=== PATIENT | female | born 1930 | race Hispanic/Latino ===

== ENCOUNTER 2017-04-26 16:29 | Observation (INO) | payer MEDICARE, BC ==
[2017-04-26] MEDS ORDERED: Sodium Chloride 0.9% 1,000 ML IV STA (16:47)
--- NOTE | 2017-04-26 17:03 | ED PDOC ---
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 Patient stated that the pain came suddenly while she was with her grandchildren. She describes the pain as sharp, rates the pain a 10/10 and states it radiates posteriorly and laterally. She does complain of associated urinary frequency that began last night. She denies any fevers, chills, abdominal pain, nausea, vomiting, hematuria, dysuria , or incontinence. ROS POSITIVES: CVA tenderness, increased urinary frequency NEGATIVES: fevers, chills, chest pain, sob, headache, abdominal tenderness, suprapubic tenderness, hematuria, dysuria, or incontinence. Past medical history: hypertension, hyperlipidemia, Hashimotos Thyroditis Past Surgical history: Polyp removal Allergies: NKDA Social History: 1/2 PPD for about 40 years. Quit 28 years ago. Family History: kidney stones in multiple family members Meds: Reviewed 04/26/17 18:10 04/26/17 20:06 (Lea Garvey) Past Medical History - Provider Review Nursing Documentation Reviewed: Yes - Infectious Disease Hx of Infectious Diseases: None - Reproductive Menopause: Yes - Cardiac Hx Hypertension: Yes - Endocrine/Metabolic Other/Comment: thyroiditis - Psychiatric Hx Substance Use: No - Anesthesia Hx Anesthesia: No Hx Anesthesia Reactions: No Hx Malignant Hyperthermia: No <Lea Garvey - Last Filed: 04/26/17 22:31> Family/Social History - Physician Review Nursing Documentation Reviewed: Yes Family/Social History: Other (Kidney Stones) Smoking Status: Never Smoked Hx Alcohol Use: Yes Frequency of alcohol use: Socially Hx Substance Use: No <Lea Garvey - Last Filed: 04/26/17 22:31> Allergies/Home Meds <Lea Garvey - Last Filed: 04/26/17 22:31> <RichardAmos - Last Filed: 04/28/17 11:36> Allergies/Adverse Reactions: Allergies No Known Allergies Allergy (Verified 04/26/17 16:39) Home Medications: Home Meds Medication Instructions Recorded Confirmed No Known Home Med 04/26/17 04/26/17 Review of Systems - Physician Review All systems were reviewed & negative as marked: Yes (As per HPI) - Review of Systems Respiratory: Normal. absent: SOB Cardiovascular: Normal. absent: Chest Pain <Lea Garvey - Last Filed: 04/26/17 22:31> Physical Exam Vital Signs Reviewed: Yes Temperature: Afebrile Blood Pressure: Normal Pulse: Regular Respiratory Rate: Normal Appearance: Positive for: Uncomfortable Pain Distress: Severe Mental Status: Positive for: Alert and Oriented X 3 - Systems Exam Head: Present: Atraumatic, Normocephalic Extroacular Muscles: Present: EOMI Conjunctiva: Present: Normal Mouth: Present: Moist Mucous Membranes Pharnyx: Present: Normal Nose (External): Present: Atraumatic Respiratory/Chest: Present: Clear to Auscultation. No: Wheezes, Rales, Rhonchi Cardiovascular: Present: Regular Rate and Rhythm, Normal S1, S2. No: Murmurs Abdomen: Present: Normal Bowel Sounds. No: Tenderness, Distention, Peritoneal Signs, Rebound, Guarding, McBurney's Point Tender, Rovsing's Sign Present, Mass/ Organomegaly Back: Present: CVA Tenderness (Left Sided) Upper Extremity: Present: Normal Inspection Lower Extremity: Present: Normal Inspection Neurological: Present: GCS=15, Speech Normal Psychiatric: Present: Alert, Oriented x 3 <Lea Garvey - Last Filed: 04/26/17 22:31> Vital Signs Temp Pulse Resp BP Pulse Ox 04/26/17 22:33 98.3 F 87 16 109/63 96 04/26/17 20:10 82 16 147/86 97 04/26/17 17:48 73 20 137/86 100 04/26/17 16:31 99.1 F 80 20 121/80 98 Medical Decision Making Reassessment Condition: Improving,but remains with symptoms - Lab Interpretations I have reviewed the lab results: Yes - RAD Interpretation Toe Pounder: Radiologist - EKG Interpretation Interpreted by ED Physician: Yes <Lea Garvey - Last Filed: 04/26/17 22:31> <Cam Ramosbrittany - Last Filed: 04/28/17 11:36> ED Course and Treatment: 87 year old female with Past medical history of hypertension, hyperlipidemia, and Hashimotos Thyroditis presents with Left sided CVA tenderness. --CBC/CMP --PT/PTT --Urinalysis/UC --1L NS fluid bolus --Toradol 15 --Morphine 2 --Flomax 0.4mg --CT Abd/Pelvis w/o contrast. --Reassess and Disposition Reassessment --CBC: Unremarkable --CMP: Unremarkable --Urinalysis: Unremarkable --Patient's pain has improved --CT Abd/Pelvis impression read by Dr. Evelin Foster: -Punctate nonobstructing bilateral renal calculi. -2.4 cm probable left ovarian cyst. -Diverticulosis without CT evidence of acute diverticulitis. --Chest X-ray: Ordered --EKG: Ordered --Reassess and Disposition Reassessment II --Chest X-ray: No Active Pulmonary Disease Process --EKG: NSR with no ST/T wave changes. --Pt is still having intermittent bouts of Pain --Morphine 4 Ordered Reassessment III --pain slightly improved with Morphine 4 --TV US for evaluation of ovarian cyst --CT Abd/Pelvis w/ PO and IV contrast for reevaluation. --Admit to Observation. 04/26/17 20:09 04/26/17 22:31 (Lea Garvey) Patient Seen With Resident: In agreement with resident note. Patient was seen and evaluated with resident, came up with plan and treatment together. An 87 year old female with left sided back pain. Additional HPI as noted by resident. On physical exam, patient has left sided CVA tenderness. Ordered CT abd/pelvis, labs and Urinalysis. Will give patient Flomax, IV fluids, Toradol, Morphine. 04/26/17 22:38 Emigdio Marie was called to place t findings in the clinical context, and addendum was appreciated as 1 mm uvj stone could be causing relaxing /relapsing course of abdominal pain. Nonetheless the patient will be rescanned with po and iv contrast to rule out any occult diverticulitis, or retroperitoneal vascular emergencies that could have been missed noncontrast ct scan . nsr @ 78 bpm w/ 1st degreee avb w/ no ischemic st-t segments nor arrythmogenic intervals. (Amos Ramos) - Lab Interpretations Microbiology Results: Microbiology Results 04/26/17 16:45 Urine,Clean Catch Urine Culture - Final No Growth (<1,000 CFU/ML) Lab Results: 04/26/17 16:45 04/26/17 16:45 Lab Results 04/26/17 16:45: Urine Color Yellow, Urine Appearance Clear, Urine pH 6.0, Ur Specific [place] 1.025, Urine Protein Negative, Urine Glucose (UA) Negative, Urine Ketones Negative, Urine Blood Negative, Urine Nitrate Negative, Urine Bilirubin Negative, Urine Urobilinogen 0.2, Ur Leukocyte Esterase Negative 04/26/17 16:45: Sodium 140, Potassium 3.7, Chloride 102, Carbon Dioxide 26, Anion Gap 15, BUN 12, Creatinine 0.7, Est GFR ( Amer) > 60, Est GFR (Non- Af Amer) > 60, Random Glucose 108, Calcium 9.3, Total Bilirubin 0.7, AST 26, ALT 26, Alkaline Phosphatase 80, Total Protein 7.5, Albumin 4.1, Globulin 3.3, Albumin/Globulin Ratio 1.2 04/26/17 16:45: PT 11.3, INR 1.04, APTT 37.8 H 04/26/17 16:45: WBC 8.0, RBC 4.46, Hgb 13.1, Hct 39.7, MCV 89.0, MCH 29.4, MCHC 33.0, RDW 13.9, Plt Count 215, MPV 9.9, Gran % 46.7 L, Lymph % (Auto) 45.2 H, [place] % (Auto) 6.0, Eos % (Auto) 1.6, Baso % (Auto) 0.5, Gran # 3.73, Lymph # 3.6 H, [place] # 0.5, Eos # 0.1, Baso # 0.04 - RAD Interpretation Radiology Orders: 04/26/17 17:23 ABD & PELVIS W/O PO OR IV CONT [CT] Stat 04/26/17 18:23 CXR [CHEST PORTABLE] [RAD] Stat 04/26/17 20:21 TRANSVAGINAL [US] Stat 04/26/17 20:22 ABD PELVIS PO & IV CONTRAST [CT] Stat - Medication Orders Current Medication Orders: Discontinued Medications Acetaminophen (Tylenol 325mg Tab) 650 mg PO Q6H PRN PRN Reason: Fever >100.4 F Famotidine (Pepcid) 40 mg PO HS PACO Hydromorphone HCl (Dilaudid) 1 mg IVP STAT STA Stop: 04/26/17 23:13 Last Admin: 04/26/17 23:28 Dose: 1 mg [facility] Pain Assessment Document 04/26/17 23:28 SC (Rec: 04/26/17 23:29 SC [id number]) Pain Reassessment Is this a pain reassessment? No Sleep Is patient sleeping during reassessment? No Presence of Pain Presence of Pain Yes Pain Scale Used Pain Scale Used Numeric Description Description Constant Intensity of Pain at present 10 IVP Administration Document 04/26/17 23:28 SC (Rec: 04/26/17 23:29 [id number]) Charges for Administration # of IVP Administrations 1 Re-Assess: [facility] Pain Assessment Document 04/27/17 00:20 KP (Rec: 04/27/17 00:32 KP [facility] [id number] Pain Reassessment Is this a pain reassessment? Yes Sleep Is patient sleeping during reassessment? No Presence of Pain Presence of Pain No Sodium Chloride (Sodium Chloride 0.9%) 1,000 mls @ 999 mls/hr IV .Q1H1M STA Stop: 04/26/17 17:47 Last Admin: 04/26/17 16:58 Dose: 999 mls/hr eMAR Start Stop Document 04/26/17 16:58 EQ (Rec: 04/26/17 16:58 EQ [facility] [id number]) Intravenous Solution Start Date 04/26/17 Start Time 16:58 Sodium Chloride (Sodium Chloride 0.9%) 1,000 mls @ 100 mls/hr IV .Q10H PACO Last Admin: 04/27/17 06:40 Dose: 100 mls/hr eMAR Start Stop Document 04/27/17 06:40 KP (Rec: 04/27/17 06:40 KP [facility] [id number]) Intravenous Solution Start Date 04/27/17 Start Time 06:40 Ketorolac Tromethamine (Toradol) 15 mg IVP STAT STA Stop: 04/26/17 16:47 Last Admin: 04/26/17 16:58 Dose: 15 mg MAR Pain Assessment Document 04/26/17 16:58 EQ (Rec: 04/26/17 16:58 EQ [id number]) Pain Reassessment Is this a pain reassessment? No Sleep Is patient sleeping during reassessment? No Presence of Pain Presence of Pain Yes Pain Scale Used Pain Scale Used Numeric IVP Administration Document 04/26/17 16:58 EQ (Rec: 04/26/17 16:58 EQ [id number]) Charges for Administration # of IVP Administrations 1 Re-Assess: [facility] Pain Assessment Document 04/27/17 00:00 KP (Rec: 04/27/17 04:01 [facility] Pain Reassessment Is this a pain reassessment? Yes Sleep Is patient sleeping during reassessment? No Presence of Pain Presence of Pain No Ketorolac Tromethamine (Toradol) 15 mg IVP Q6 PRN PRN Reason: Pain, moderate (4-7) Levothyroxine Sodium (Synthroid) 100 mcg PO 0600 PACO Last Admin: 04/27/17 06:40 Dose: 100 mcg Morphine Sulfate (Morphine) 2 mg IVP STAT STA Stop: 04/26/17 17:10 Last Admin: 04/26/17 17:19 Dose: 2 mg [facility] Pain Assessment Document 04/26/17 17:19 EQ (Rec: 04/26/17 17:19 EQ [id number]) Pain Reassessment Is this a pain reassessment? No Sleep Is patient sleeping during reassessment? No Presence of Pain Presence of Pain Yes Pain Scale Used Pain Scale Used Numeric IVP Administration Document 04/26/17 17:19 EQ (Rec: 04/26/17 17:19 EQ [id number]) Charges for Administration # of IVP Administrations 1 Re-Assess: [facility] Pain Assessment Document 04/27/17 00:00 KP (Rec: 04/27/17 00:32 [id number] Pain Reassessment Is this a pain reassessment? Yes Sleep Is patient sleeping during reassessment? No Presence of Pain Presence of Pain No Morphine Sulfate (Morphine) 2 mg IVP STAT STA Stop: 04/26/17 17:49 Last Admin: 04/26/17 18:24 Dose: 2 mg MAR Pain Assessment Document 04/26/17 18:24 EQ (Rec: 04/26/17 18:24 EQ [id number]) Pain Reassessment Is this a pain reassessment? No Sleep Is patient sleeping during reassessment? No Presence of Pain Presence of Pain Yes IVP Administration Document 04/26/17 18:24 EQ (Rec: 04/26/17 18:24 EQ [id number]) Charges for Administration # of IVP Administrations 1 Re-Assess: [facility] Pain Assessment Document 04/27/17 00:00 KP (Rec: 04/27/17 00:32 [facility] Pain Reassessment Is this a pain reassessment? Yes Sleep Is patient sleeping during reassessment? No Presence of Pain Presence of Pain No Morphine Sulfate (Morphine) 4 mg IVP STAT STA Stop: 04/26/17 19:32 Last Admin: 04/26/17 19:47 Dose: 4 mg MAR Pain Assessment Document 04/26/17 19:47 SC (Rec: 04/26/17 19:48 SC [id number]) Pain Reassessment Is this a pain reassessment? No Sleep Is patient sleeping during reassessment? No Presence of Pain Presence of Pain Yes Pain Scale Used Pain Scale Used Numeric Description Intensity of Pain at present 10 IVP Administration Document 04/26/17 19:47 SC (Rec: 04/26/17 19:48 SC [id number]) Charges for Administration # of IVP Administrations 4 Re-Assess: [facility] Pain Assessment Document 04/27/17 00:00 KP (Rec: 04/27/17 04:02 [id number] Pain Reassessment Is this a pain reassessment? Yes Sleep Is patient sleeping during reassessment? No Presence of Pain Presence of Pain No Morphine Sulfate (Morphine) 2 mg IVP STAT STA Stop: 04/26/17 21:08 Last Admin: 04/26/17 21:15 Dose: 2 mg MAR Pain Assessment Document 04/26/17 21:15 SC (Rec: 04/26/17 21:15 SC [id number]) Pain Reassessment Is this a pain reassessment? No Sleep Is patient sleeping during reassessment? No Presence of Pain Presence of Pain Yes Pain Scale Used Pain Scale Used Numeric Description Intensity of Pain at present 8 IVP Administration Document 04/26/17 21:15 SC (Rec: 04/26/17 21:15 [id number]) Charges for Administration # of IVP Administrations 5 Re-Assess: [facility] Pain Assessment Document 04/27/17 00:00 KP (Rec: 04/27/17 04:01 KP [facility] [id number] Pain Reassessment Is this a pain reassessment? Yes Sleep Is patient sleeping during reassessment? No Presence of Pain Presence of Pain No Ondansetron HCl (Zofran Inj) 4 mg IVP STAT STA Stop: 04/26/17 20:57 Last Admin: 04/26/17 21:15 Dose: 4 mg IVP Administration Document 04/26/17 21:15 SC (Rec: 04/26/17 21:15 [id number]) Charges for Administration # of IVP Administrations 1 Ondansetron HCl (Zofran Inj) 4 mg IVP Q4H PRN PRN Reason: Nausea/Vomiting Potassium Chloride (K-Dur 20 Meq Er Tab) 20 meq PO ONCE ONE Stop: 04/27/17 10:45 Last Admin: 04/27/17 11:47 Dose: 20 meq Tamsulosin HCl (Flomax) 0.4 mg PO STAT STA Stop: 04/26/17 16:48 Last Admin: 04/26/17 16:58 Dose: 0.4 mg Tamsulosin HCl (Flomax) 0.4 mg PO DAILY [facility] Last Admin: 04/27/17 10:40 Dose: 0.4 mg Disposition/Present on Arrival - Present on Arrival Any Indicators Present on Arrival: No History of DVT/PE: No History of Uncontrolled Diabetes: No Urinary Catheter: No History of Decub. Ulcer: No History Surgical Site Infection Following: None - Disposition Have Diagnosis and Disposition been Completed?: No Disposition Time: 22:36 Patient Plan: Admission <Lea Garvey - Last Filed: 04/26/17 22:31> - Present on Arrival Any Indicators Present on Arrival: No History of DVT/PE: No History of Uncontrolled Diabetes: No Urinary Catheter: No History of Decub. Ulcer: No - Disposition Have Diagnosis and Disposition been Completed?: No Patient Plan: Admission <Amos Ramos - Last Filed: 04/28/17 11:36> - Disposition Diagnosis: Ureterolithiasis, Intractable pain Disposition: HOSPITALIZED Condition: STABLE
[2017-04-26] MEDS ORDERED: Morphine 2 mg/ml ISec IVP STA ×3 (17:09→21:07)
[2017-04-26 17:43] LABS: BASO # 0.04 K/mm3 (0.0-2.0); BASO % 0.5 % (0.0-3.0); EOS # 0.1 (0.0-0.7); EOS % 1.6 % (1.5-5.0); GRAN # 3.73 (1.4-6.5); GRAN % 46.7 % (50.0-68.0); HEMATOCRIT 39.7 % (36.0-48.0); LYMPH # 3.6 (1.2-3.4); LYMPH % 45.2 % (22.0-35.0); MEAN CORPUSCULAR HEMOGLOBIN 29.4 pg (25.0-35.0); MEAN PLATELET VOLUME 9.9 fl (7.0-11.0); MONO # 0.5 (0.1-0.6); RED CELL DISTRIBUTION WIDTH 13.9 % (11.5-14.5)
--- NOTE | 2017-04-26 17:43 | CT ---
PROCEDURE: CT Abdomen and Pelvis without Oral or IV contrast. HISTORY: CVA Tenderness COMPARISON: CT abdomen pelvis without contrast performed 04/30/15 TECHNIQUE: Contiguous axial images of the abdomen and pelvis. No oral or IV contrast administered. Coronal and Sagittal reformats generated and reviewed. Radiation dose: Total exam DLP = 393.77 mGy-cm. This CT exam was performed using one or more of the following dose reduction techniques: Automated exposure control, adjustment of the mA and/or kV according to patient size, and/or use of iterative reconstruction technique. FINDINGS: There is limited evaluation of the solid organs without the administration of IV contrast. LOWER THORAX: No visible consolidation, pleural effusion, or pneumothorax. LIVER: Unremarkable unenhanced appearance. GALLBLADDER AND BILE DUCTS: Unremarkable unenhanced appearance. PANCREAS: Unremarkable unenhanced appearance. SPLEEN: Unremarkable unenhanced appearance. ADRENALS: Unremarkable unenhanced appearance. KIDNEYS AND URETERS: Punctate nonobstructing bilateral renal calculi. No hydronephrosis or obstructing renal calculus. BLADDER: The urinary bladder appears unremarkable. REPRODUCTIVE: Uterus is present. 2.4 cm probable left ovarian cyst. APPENDIX: The appendix is not identified. No secondary signs of acute appendicitis. BOWEL: The stomach is nondistended. Lack of oral contrast limits evaluation for bowel pathology. The bowel loops appear within normal limits of caliber without evidence of intestinal obstruction. Diverticulosis without CT evidence of acute diverticulitis. PERITONEUM: No significant free fluid. No definite free air. LYMPH NODES: No bulky lymphadenopathy identified. VASCULATURE: Atherosclerotic calcifications. No aortic aneurysm. BONES: Degenerative changes. OTHER FINDINGS: None. IMPRESSION: Punctate nonobstructing bilateral renal calculi. 2.4 cm probable left ovarian cyst. Diverticulosis without CT evidence of acute diverticulitis.
[2017-04-26 17:55] LABS: URINE BILIRUBIN NEGATIVE (NEGATIVE); URINE BLOOD NEGATIVE (NEGATIVE); URINE GLUCOSE (UA) NEGATIVE (NEGATIVE); URINE KETONE NEGATIVE (NEGATIVE); URINE LEUKOCYTE ESTERASE NEGATIVE Leu/uL (NEGATIVE); URINE PROTEIN NEGATIVE mg/dL (<30 mg/dL); URINE UROBILINOGEN 0.2 E.U./dL (<1 E.U./dL)
[2017-04-26 17:56] LABS: INR 1.04 (0.93-1.08); PARTIAL THROMBOPLASTIN TIME 37.8 Seconds (25.1-36.5)
[2017-04-26 17:59] LABS: URINE APPEARANCE CLEAR (CLEAR); URINE COLOR YELLOW (YELLOW)
[2017-04-26 18:11] LABS: ALB/GLOB RATIO 1.2 (1.1-1.8); ALKALINE PHOSPHATASE 80 U/L (38-126); ALT/SGPT 26 U/L (7-56); AST/SGOT 26 U/L (14-36); BILIRUBIN,TOTAL 0.7 mg/dL (0.2-1.3); BLOOD UREA NITROGEN 12 mg/dL (7-21); CALCIUM 9.3 mg/dL (8.4-10.5); CARBON DIOXIDE 26 mmol/L (21-33); CHLORIDE 102 mmol/L (98-107); GFR AFRICAN-AMERICAN > 60; GLUCOSE,RANDOM 108 mg/dL (70-110); POTASSIUM 3.7 mmol/L (3.6-5.0); SODIUM 140 mmol/L (132-148); TOTAL PROTEIN 7.5 g/dL (5.8-8.3)
[2017-04-26] MEDS ORDERED: Morphine 5 MG/ML SYRINGE IVP STA (19:31)
[2017-04-26] MEDS ORDERED: Iohexol 240 (50 ml) ONE (20:51)
[2017-04-26] MEDS ORDERED: Iohexol 350 MG/100 ML VIAL ONE (20:51)
[2017-04-26] MEDS ORDERED: HYDROmorphone 1 mg/ml ISec IVP STA (23:12)
--- NOTE | 2017-04-26 23:43 | CT ---
EXAM: CT Abdomen and Pelvis With Intravenous Contrast EXAM DATE/TIME: 04/26/2017 8:22 PM CLINICAL HISTORY: 87 years old, female; Pain; Abdominal pain; Acute; Additional info: CVA tenderness TECHNIQUE: Axial computed tomography images of the abdomen and pelvis with intravenous contrast. All CT scans at this facility use one or more dose reduction techniques, viz.: automated exposure control; ma/kV adjustment per patient size (including targeted exams where dose is matched to indication; i.e. head); or iterative reconstruction technique. MIP reconstructed images were created and reviewed. Coronal and sagittal reformatted images were created and reviewed. CONTRAST: 100 mL of OMNI 350 administered intravenously. COMPARISON: CT - ABD PELVIS W/O PO OR IV CONT 2017-04-26 17:31 FINDINGS: Lower thorax: The heart is mildly enlarged. There is reflux of oral contrast into the distal esophagus. There is atelectasis and scarring at the lung bases. ABDOMEN: Liver: There is fatty infiltration of the liver. Gallbladder and bile ducts: unremarkable Pancreas: Pancreas is mildly atrophic. Spleen: unremarkable Adrenals: unremarkable Kidneys and ureters: Right kidney and ureter are unremarkable. There are nonobstructing left lower pole renal stones. There are no perfusion defects on the left. There is mild obstructive uropathy with delayed nephrogram. There is perinephric stranding and fluid. There is mild left pelvocaliectasis and ureterectasis. Dilated ureter can be traced to the bladder. There continues to be a very small punctate calcification at the ureterovesical junction 1.2 mm in diameter. There may be a ureterocele. Stomach and bowel: Stomach is partially distended with contrast. There is an air-fluid level. Rotation is normal. There is no small bowel obstruction. Terminal ileum is unremarkable. Appendix is not visualized. There is no pericecal Colon is incompletely distended which limits evaluation. There is diverticulosis. Appendix: See stomach and bowel PELVIS: Bladder: Urinary bladder is partially distended. Reproductive: Uterus is atrophic. Right adnexa is unremarkable. There is a 2.7 cm left adnexal cyst, unchanged. ABDOMEN and PELVIS: Intraperitoneal space: There is no free air or free fluid. Bones/joints: There are degenerative changes in the osseus structures. Soft tissues: There is a small fat containing umbilical hernia. Vasculature: There are vascular calcifications. There is a 4.8 mm calcification at the splenic hilum suggesting tiny aneurysm. There are calcifications in the aorta and iliacs. Lymph nodes: There is no pathologic adenopathy. IMPRESSION: 1.2 mm obstructing stone left ureterovesical junction; no renal perfusion defects to suggest pyelonephritis; diverticulosis without CT findings of diverticulitis; fatty liver Additional findings as described above.
[2017-04-27] VITALS: O2SAT 96
[2017-04-27] MEDS ORDERED: Levothyroxine 100 MCG TAB PO SCH (06:00)
--- NOTE | 2017-04-27 06:27 | CP.PCM.HP ---
History of Present Illness - History of Present Illness History of Present Illness: CC: Back Pain Subjective: HPI: Patient is a 87 year old year old female with past medical history of hypertension, hyperlipidemia, and Hashimotos Thyroditis who presented to the ED for evaluation of left CVA tenderness that started yesterday afternoon. Patient stated that the pain was sudden on onset with no provoking event. The pain is described as being sharp in nature, was rated a 10/10, and stated that it radiated posteriorly and laterally. The pain was associated with urinary frequency and nausea. No hematuria. At this time the pain has completely resolved. Patient denies intractable headache, fever, chills, dizziness, blurry vision, ringing in the ears, chest pain, shortness of breath, abdominal pain, nausea, vomiting, diarrhea, constipation. ROS: 12 point review of systems negative except as indicated in HPI PMHx: hypertension, hyperlipidemia, and Hashimotos Thyroditis PSHx: cataracts surgery Family Hx: noncontributory Social Hx: social ETOH use, 1/2 PPD for about 40 years. Quit 28 years ago. No illicit drug use Medications: Please confirm medications with [facility] as patient does not know dosage of diovan PMD: Dr. govea Pharmacy: [facility] Physical Examination: - Constitutional Appears: Non-toxic, No Acute Distress - Head Exam Head Exam: atraumatic, normocephalic - Eye Exam Eye Exam: Normal appearance, PERRL. absent: Scleral icterus - ENT Exam ENT Exam: Mucous Membranes Moist - Neck Exam Neck exam: Normal Inspection - Respiratory Exam Respiratory Exam: Normal Breathing Pattern - Cardiovascular Exam Cardiovascular Exam: RRR +S1, +S2. absent: Gallop, JVD - GI/Abdominal Exam GI & Abdominal Exam: Normal Bowel Sounds, absent: Distended, Guarding, Pulsatile Mass, Rebound, Rigid - Back Exam Back Exam: no cva tenderness bilaterally - Extremities Exam Extremities exam: Negative for: calf tenderness - Neurological Exam Neurological exam: Patient is awake, alert, responds to verbal stimuli, answers questions appropriately, follows commands, and moves extremities past midline - Pelvic Exam Pelvic exam: deferred - Psychiatric Exam Psychiatric exam: Normal Affect, Normal Mood - Skin Skin Exam: warm and dry Assessment and Plan: Patient is a 87 year old year old female with past medical history of hypertension, hyperlipidemia, and Hashimotos Thyroditis who was admitted for evaluation and treatment of back pain. Renal Calculi Back Pain - CT of the Abdomen and Pelvis without contrast- Punctate nonobstructing bilateral renal calculi. 2.4 cm probable left ovarian cyst. Diverticulosis without CT evidence of acute diverticulitis. - CT of the abdomen and pelvis with contrast- 1.2 mm obstructing stone left ureterovesical junction; no renal perfusion defects to suggest pyelonephritis; diverticulosis without CT findings of diverticulitis; fatty liver - UA reviewed and appreciated - toradol prn pain - tamsulosin - strain urine for calculi - IVF NS @ 100 - urology consult- appreciate recommendations Ovarian Cyst - transvaginal ultrasound pending - previous transvaginal ultrasound 07/02/15- shows Heterogeneous appearance of the endometrium which measures approximately 7 mm in diameter. Suggest further evaluation with hysteroscopy. The right ovary is not visualized. 2.5 cm left ovarian cyst. Recommend 6 week ultrasound follow-up to assess for resolution.- - patient did not follow up - previous transvaginal ultrasound 07/02/12 and pelvic ultrasound 2013- reviewed and appreciated - consider call taker consult pending patient clinical course Hx of Hashimotos - Tsh pending - c/w home synthyroid 100mcg Hx of Htn - BP reviewed, trended, and appreciated- no elevation - please confirm patients home diovan dose prior to starting - would consider hydralazine 5mg IV q6 prn SBP > 180 with holding parameters- do not administer if HR is > 100 bpm if SBP elevated- WNL now Hx of Hyperlipidemia - dose not take simvastatin due to muscle cramps - lipid profile pending Prophylaxis - DVT ppx- scds - GI ppx- famotidine Patient case discussed with and plan approved by attending physician. Present on Admission - Present on Admission Any Indicators Present on Admission: No Past Patient History - Infectious Disease Hx of Infectious Diseases: None - Past Social History Smoking Status: Former Smoker - CARDIAC Hx Cardiac Disorders: Yes Hx Hypertension: Yes - PULMONARY Hx Respiratory Disorders: No - NEUROLOGICAL Hx Neurological Disorder: No - HEENT Hx HEENT Problems: No - RENAL Hx Chronic Kidney Disease: No - ENDOCRINE/METABOLIC Hx Endocrine Disorders: Yes Other/Comment: thyroiditis - HEMATOLOGICAL/ONCOLOGICAL Hx Blood Disorders: No - INTEGUMENTARY Hx Dermatological Problems: No - MUSCULOSKELETAL/RHEUMATOLOGICAL Hx Musculoskeletal Disorders: No Hx Falls: No - GASTROINTESTINAL Hx Gastrointestinal Disorders: Yes Hx Diverticulitis: Yes - GENITOURINARY/GYNECOLOGICAL Hx Genitourinary Disorders: No - PSYCHIATRIC Hx Psychophysiologic Disorder: No Hx Emotional Abuse: No Hx Physical Abuse: No Hx Substance Use: No - SURGICAL HISTORY Hx Surgeries: No - ANESTHESIA Hx Anesthesia: No Hx Anesthesia Reactions: No Hx Malignant Hyperthermia: No Meds Allergies/Adverse Reactions: Allergies Allergy/AdvReac Type Severity Reaction Status Date / Time No Known Allergies Allergy Verified 04/26/17 16:39 Results - Vital Signs Recent Vital Signs: Last Vital Signs Temp 97.5 F L 04/27/17 00:34 Pulse 65 04/27/17 00:34 Resp 18 04/27/17 00:34 BP 110/64 04/27/17 00:34 Pulse Ox 96 04/26/17 22:33 - Labs Result Diagrams: 04/26/17 16:45 04/26/17 16:45
[2017-04-27] MEDS ORDERED: Sodium Chloride 0.9% 1,000 ML IV SCH (06:30)
[2017-04-27 07:59] LABS: BASO # 0.03 K/mm3 (0.0-2.0); BASO % 0.3 % (0.0-3.0); EOS # 0.1 (0.0-0.7); EOS % 0.7 % (1.5-5.0); GRAN # 6.17 (1.4-6.5); GRAN % 59.1 % (50.0-68.0); HEMATOCRIT 34.8 % (36.0-48.0); LYMPH # 3.4 (1.2-3.4); LYMPH % 32.1 % (22.0-35.0); MEAN CELL VOLUME 87.7 fl (80.0-105.0); MEAN CORPUSCULAR HEMOGLOBIN 28.7 pg (25.0-35.0); MEAN CORPUSCULAR HGB CONC 32.8 g/dl (31.0-37.0); MEAN PLATELET VOLUME 9.6 fl (7.0-11.0); MONO # 0.8 (0.1-0.6); MONO % 7.8 % (1.0-6.0); WHITE BLOOD COUNT 10.4 10^3/ul (4.5-11.0)
[2017-04-27 08:11] LABS: BLOOD UREA NITROGEN 10 mg/dL (7-21); CALCIUM 8.5 mg/dL (8.4-10.5); CARBON DIOXIDE 27 mmol/L (21-33); CHLORIDE 100 mmol/L (98-107); CHOLESTEROL 165 mg/dL (130-200); GFR AFRICAN-AMERICAN > 60; GLUCOSE,RANDOM 94 mg/dL (70-110); POTASSIUM 3.5 mmol/L (3.6-5.0); SODIUM 134 mmol/L (132-148)
--- NOTE | 2017-04-27 08:30 | RAD ---
HISTORY: Lateral Abd Pain. COMPARISON: 04/14/2014 FINDINGS: LUNGS: No active pulmonary disease. PLEURA: No significant pleural effusion identified, no pneumothorax apparent. CARDIOVASCULAR: Normal. OSSEOUS STRUCTURES: No significant abnormalities. VISUALIZED UPPER ABDOMEN: Normal. OTHER FINDINGS: None. IMPRESSION: No active disease.
[2017-04-27 10:38] VITALS: BP 90/48; PULSE 78; RESP 20; TEMP 99
[2017-04-27] MEDS ORDERED: Potassium Chloride 20 mEq ER Tab PO ONE (10:44)
--- NOTE | 2017-04-27 13:53 | US ---
HISTORY: left sided ovarian cyst COMPARISON: Transvaginal pelvic ultrasound of 12/22/2012 as well as 07/12/2015. TECHNIQUE: Transabdominal and transvaginal pelvic ultrasound was performed with longitudinal and transverse images submitted for interpretation. FINDINGS: UTERUS: Measures 6.5 x 3.5 x 5.4 cm. Uterus is mildly atrophic once again and is otherwise unremarkable. ENDOMETRIUM: Measures 7.2 mm in diameter. The endometrium is nonfocal but 7.2 mm slightly abnormal for a postmenopausal patient. Further clinical correlation is advised. CERVIX: No cervical abnormality identified. RIGHT OVARY: Right ovary is not identified at this time. No cyst or solid right adnexal mass is identified either. LEFT OVARY: Measures 3.6 x 3.6 x 2.5 cm. No solid mass. Normal flow. A 2.8 x 2.8 x 2.3 cm simple cysts is again identified at the left adnexal compartment within the left ovary increased 1.8 cm greatest dimension from 2013. FREE FLUID: No significant free fluid noted. OTHER FINDINGS: None. IMPRESSION: 1. Slightly increased benign cyst 2.8 cm greatest dimension of left ovary originally seen and transvaginal pelvic ultrasound exam in 2012. Right ovary is not seen. No suspicious right adnexal findings. 2. Somewhat retroverted uterus with thickened endometrium 7.2 mm which is somewhat stable but still more than the normal 5 mm upper limit for postmenopausal patient. No focal myometrial lesion. Clinically correlate further. Uterus is unremarkable otherwise.
--- NOTE | 2017-04-27 14:24 | CP.PCM.DIS ---
<ShahramAneln - Last Filed: 04/27/17 15:56> Provider - Provider Date of Admission: 04/26/17 22:33 Attending physician: Delonte Balderrama MD Primary care physician: Jace Osborne MD Time Spent in preparation of Discharge (in minutes): 45 Hospital Course - Lab Results Lab Results: Most Recent Lab Values WBC 10.4 10^3/ul (4.5-11.0) D 04/27/17 07:45 RBC 3.97 10^6/uL (3.5-6.1) 04/27/17 07:45 Hgb 11.4 g/dL (12.0-16.0) L 04/27/17 07:45 Hct 34.8 % (36.0-48.0) L 04/27/17 07:45 MCV 87.7 fl (80.0-105.0) 04/27/17 07:45 MCH 28.7 pg (25.0-35.0) 04/27/17 07:45 MCHC 32.8 g/dl (31.0-37.0) 04/27/17 07:45 RDW 14.0 % (11.5-14.5) 04/27/17 07:45 Plt Count 180 10^3/uL (120.0-450.0) 04/27/17 07:45 MPV 9.6 fl (7.0-11.0) 04/27/17 07:45 Gran % 59.1 % (50.0-68.0) 04/27/17 07:45 Lymph % (Auto) 32.1 % (22.0-35.0) 04/27/17 07:45 [place] % (Auto) 7.8 % (1.0-6.0) H 04/27/17 07:45 Eos % (Auto) 0.7 % (1.5-5.0) L 04/27/17 07:45 Baso % (Auto) 0.3 % (0.0-3.0) 04/27/17 07:45 Gran # 6.17 (1.4-6.5) 04/27/17 07:45 Lymph # 3.4 (1.2-3.4) 04/27/17 07:45 [place] # 0.8 (0.1-0.6) H 04/27/17 07:45 Eos # 0.1 (0.0-0.7) 04/27/17 07:45 Baso # 0.03 K/mm3 (0.0-2.0) 04/27/17 07:45 PT 11.3 SECONDS (9.4-12.5) 04/26/17 16:45 INR 1.04 (0.93-1.08) 04/26/17 16:45 APTT 37.8 Seconds (25.1-36.5) H 04/26/17 16:45 Sodium 134 mmol/L (132-148) 04/27/17 07:45 Potassium 3.5 mmol/L (3.6-5.0) L 04/27/17 07:45 Chloride 100 mmol/L (98-107) 04/27/17 07:45 Carbon Dioxide 27 mmol/L (21-33) 04/27/17 07:45 Anion Gap 10 (10-20) 04/27/17 07:45 BUN 10 mg/dL (7-21) 04/27/17 07:45 Creatinine 0.7 mg/dl (0.7-1.2) 04/27/17 07:45 Est GFR ( Amer) > 60 04/27/17 07:45 Est GFR (Non-Af Amer) > 60 04/27/17 07:45 Random Glucose 94 mg/dL (70-110) 04/27/17 07:45 Calcium 8.5 mg/dL (8.4-10.5) 04/27/17 07:45 Total Bilirubin 0.7 mg/dL (0.2-1.3) 04/26/17 16:45 AST 26 U/L (14-36) 04/26/17 16:45 ALT 26 U/L (7-56) 04/26/17 16:45 Alkaline Phosphatase 80 U/L (38-126) 04/26/17 16:45 Total Protein 7.5 g/dL (5.8-8.3) 04/26/17 16:45 Albumin 4.1 g/dL (3.0-4.8) 04/26/17 16:45 Globulin 3.3 gm/dL 04/26/17 16:45 Albumin/Globulin Ratio 1.2 (1.1-1.8) 04/26/17 16:45 Triglycerides 84 mg/dL (35-160) 04/27/17 07:45 Cholesterol 165 mg/dL (130-200) 04/27/17 07:45 LDL Cholesterol Direct 123 mg/dL (0-129) 04/27/17 07:45 HDL Cholesterol 43 mg/dL (29-60) 04/27/17 07:45 TSH 3rd Generation 5.61 mIU/mL (0.46-4.68) H 04/27/17 07:45 Urine Color Yellow (YELLOW) 04/26/17 16:45 Urine Appearance Clear (CLEAR) 04/26/17 16:45 Urine pH 6.0 (4.7-8.0) 04/26/17 16:45 Ur Specific [place] 1.025 (1.005-1.035) 04/26/17 16:45 Urine Protein Negative mg/dL (<30 mg/dL) 04/26/17 16:45 Urine Glucose (UA) Negative mg/dL (NEGATIVE) 04/26/17 16:45 Urine Ketones Negative mg/dL (NEGATIVE) 04/26/17 16:45 Urine Blood Negative (NEGATIVE) 04/26/17 16:45 Urine Nitrate Negative (NEGATIVE) 04/26/17 16:45 Urine Bilirubin Negative (NEGATIVE) 04/26/17 16:45 Urine Urobilinogen 0.2 E.U./dL (<1 E.U./dL) 04/26/17 16:45 Ur Leukocyte Esterase Negative Lissa/uL (NEGATIVE) 04/26/17 16:45 - Hospital Course Hospital Course: 87 year old female with a past medical history of hypertension, hyperlipidemia, Esther's Thyroiditis who presented to the emergency department for evaluation of left CVA tenderness that started yesterday afternoon. Patient stated that pain was sudden onset and nothing illicit the pain. The pain is described as being sharp in nature, and was rated a 10/10 and stated that it radiated to the posterior of her back and laterally. The pain was associated with urinary frequency and nausea with nausea. She denied at hematuria, chest pain, shortness of breath, abdominal pain ,nausea, vomiting diarrhea, constipation or any other complaints as a result. The patient was admitted for renal colic. Whiled admitted Urology was consulted for the patient. While admitted the patient had a abdomen/pelvis CT done that showed a 1.2mm obstructing stone with no renal defects to suggest pyelonephritis . The patient also had a transvaginal ultrasound done that showed a slightly increased benign ovarian cyst measuring 2.8 mm and retro-verted uterus with a thickened endometrium measuring 7.2mm. The patient was pain resolved and she was cleared to be discharged with instructions to follow up with Urology within one week of discharge and to follow up with PMD within one week of discharge. Discharge Exam - Eye Exam Eye Exam: EOMI, Normal appearance, PERRL Pupil Exam: NORMAL ACCOMODATION, PERRL. absent: Miosis, Mydriatic - ENT Exam ENT Exam: Mucous Membranes Moist, Normal Oropharynx - Respiratory Exam Respiratory Exam: Clear to PA & Lateral, NORMAL BREATHING PATTERN, UNREMARKABLE. absent: Chest Wall Tenderness, Prolonged Expiratory Phase - Cardiovascular Exam Cardiovascular Exam: REGULAR RHYTHM, +S1, +S2. absent: Gallop, Rubs - GI/Abdominal Exam GI & Abdominal Exam: Normal Bowel Sounds, Soft, Unremarkable - Back Exam Back exam: NORMAL INSPECTION. absent: CVA tenderness (L), CVA tenderness (R), paraspinal tenderness - Neurological Exam Neurological exam: Alert, CN II-XII Intact, Oriented x3 - Psychiatric Exam Psychiatric exam: Normal Affect, Normal Mood - Skin Skin Exam: Dry, Intact, Normal Color Discharge Plan - Follow Up Plan Condition: STABLE Disposition: HOME/ ROUTINE Instructions: Ovarian Cyst (DC), Kidney Stones (DC), Urinary Incontinence (GEN) , Hypertension (DC) Additional Instructions: 1. Patient advised to follow up with PMD within one week of discharge. 2.Patient advised to follow up with Dr. Gillis within on week of discharge. 3.Advised patient to return to emergency department for any new or worsening symptoms. Referrals: Jace Osborne MD [Primary Care Provider] - <Delonte Balderrama - Last Filed: 04/28/17 17:37> Provider - Provider Date of Admission: 04/26/17 22:33 Attending physician: Delonte Balderrama MD Primary care physician: Jace Osborne MD Hospital Course - Lab Results Lab Results: Most Recent Lab Values WBC 10.4 10^3/ul (4.5-11.0) D 04/27/17 07:45 RBC 3.97 10^6/uL (3.5-6.1) 04/27/17 07:45 Hgb 11.4 g/dL (12.0-16.0) L 04/27/17 07:45 Hct 34.8 % (36.0-48.0) L 04/27/17 07:45 MCV 87.7 fl (80.0-105.0) 04/27/17 07:45 MCH 28.7 pg (25.0-35.0) 04/27/17 07:45 MCHC 32.8 g/dl (31.0-37.0) 04/27/17 07:45 RDW 14.0 % (11.5-14.5) 04/27/17 07:45 Plt Count 180 10^3/uL (120.0-450.0) 04/27/17 07:45 MPV 9.6 fl (7.0-11.0) 04/27/17 07:45 Gran % 59.1 % (50.0-68.0) 04/27/17 07:45 Lymph % (Auto) 32.1 % (22.0-35.0) 04/27/17 07:45 [place] % (Auto) 7.8 % (1.0-6.0) H 04/27/17 07:45 Eos % (Auto) 0.7 % (1.5-5.0) L 04/27/17 07:45 Baso % (Auto) 0.3 % (0.0-3.0) 04/27/17 07:45 Gran # 6.17 (1.4-6.5) 04/27/17 07:45 Lymph # 3.4 (1.2-3.4) 04/27/17 07:45 [place] # 0.8 (0.1-0.6) H 04/27/17 07:45 Eos # 0.1 (0.0-0.7) 04/27/17 07:45 Baso # 0.03 K/mm3 (0.0-2.0) 04/27/17 07:45 PT 11.3 SECONDS (9.4-12.5) 04/26/17 16:45 INR 1.04 (0.93-1.08) 04/26/17 16:45 APTT 37.8 Seconds (25.1-36.5) H 04/26/17 16:45 Sodium 134 mmol/L (132-148) 04/27/17 07:45 Potassium 3.5 mmol/L (3.6-5.0) L 04/27/17 07:45 Chloride 100 mmol/L (98-107) 04/27/17 07:45 Carbon Dioxide 27 mmol/L (21-33) 04/27/17 07:45 Anion Gap 10 (10-20) 04/27/17 07:45 BUN 10 mg/dL (7-21) 04/27/17 07:45 Creatinine 0.7 mg/dl (0.7-1.2) 04/27/17 07:45 Est GFR ( Amer) > 60 04/27/17 07:45 Est GFR (Non-Af Amer) > 60 04/27/17 07:45 Random Glucose 94 mg/dL (70-110) 04/27/17 07:45 Calcium 8.5 mg/dL (8.4-10.5) 04/27/17 07:45 Total Bilirubin 0.7 mg/dL (0.2-1.3) 04/26/17 16:45 AST 26 U/L (14-36) 04/26/17 16:45 ALT 26 U/L (7-56) 04/26/17 16:45 Alkaline Phosphatase 80 U/L (38-126) 04/26/17 16:45 Total Protein 7.5 g/dL (5.8-8.3) 04/26/17 16:45 Albumin 4.1 g/dL (3.0-4.8) 04/26/17 16:45 Globulin 3.3 gm/dL 04/26/17 16:45 Albumin/Globulin Ratio 1.2 (1.1-1.8) 04/26/17 16:45 Triglycerides 84 mg/dL (35-160) 04/27/17 07:45 Cholesterol 165 mg/dL (130-200) 04/27/17 07:45 LDL Cholesterol Direct 123 mg/dL (0-129) 04/27/17 07:45 HDL Cholesterol 43 mg/dL (29-60) 04/27/17 07:45 TSH 3rd Generation 5.61 mIU/mL (0.46-4.68) H 04/27/17 07:45 Urine Color Yellow (YELLOW) 04/26/17 16:45 Urine Appearance Clear (CLEAR) 04/26/17 16:45 Urine pH 6.0 (4.7-8.0) 04/26/17 16:45 Ur Specific [place] 1.025 (1.005-1.035) 04/26/17 16:45 Urine Protein Negative mg/dL (<30 mg/dL) 04/26/17 16:45 Urine Glucose (UA) Negative mg/dL (NEGATIVE) 04/26/17 16:45 Urine Ketones Negative mg/dL (NEGATIVE) 04/26/17 16:45 Urine Blood Negative (NEGATIVE) 04/26/17 16:45 Urine Nitrate Negative (NEGATIVE) 04/26/17 16:45 Urine Bilirubin Negative (NEGATIVE) 04/26/17 16:45 Urine Urobilinogen 0.2 E.U./dL (<1 E.U./dL) 04/26/17 16:45 Ur Leukocyte Esterase Negative Lissa/uL (NEGATIVE) 04/26/17 16:45 Attending/Attestation - Attestation I have personally seen and examined this patient.: Yes I have fully participated in the care of the patient.: Yes I have reviewed all pertinent clinical information, including history, physical exam and plan: Yes Notes (Text): 87 year old female with a past medical history of hypertension, hyperlipidemia, Esther's Thyroiditis who presented to the emergency department for evaluation of left renal colic. Pain has completely resolved today. Urologist advised the patient to follow up in the office. TVUS findings were discussed with the patient. Advised patient to follow up with Dr Schafer (obgyn) and Dr Leyva. Dr Delonte Balderrama
--- NOTE | 2017-04-27 17:44 | CARD ---
APPROVED REPORT EKG Measurement Heart [id number] <Conclusion> Normal sinus rhythm Normal ECG
== END 2017-04-27 14:34 | disposition home or self-care (01) ==
LOC: ED 16:29 → ERH 22:33 → 5RSO 23:57
PROVIDERS: ADMIT Internal Medicine; ATTEND Hospitalist
DX: N20.0 Calculus of kidney (principal); N83.202 Unspecified ovarian cyst, left side; N85.4 Malposition of uterus; I10 Essential (primary) hypertension; E78.5 Hyperlipidemia, unspecified; E06.3 Autoimmune thyroiditis; K57.90 Diverticulosis of intestine, part unspecified, without perforation or abscess without bleeding; Z87.891 Personal history of nicotine dependence
CPT/HCPCS: 36415; 71010; 74176; 74177; 76830; 80048; 80053; 80061; 81003; 84443; 85025; 85610; 85730; 87086; 93005; 96374; 96376; 99285; G0378; J1170; J1885; J2270; J2405; J7040; Q9966; Q9967